=== PATIENT | female | born 1965 | race Caucasian/White ===

== ENCOUNTER 2017-02-05 21:31 | Observation (INO) | payer OTHER ==
--- NOTE | ~2017-02-05 | CR72 ---
[facility] A Service of [facility] & [facility] RADIOLOGY TEXT RESULTS PATIENT: GI QUIÑONES LOCATION: [facility] 302- : 63 UNIT #: [id number] AGE: [address]: Ankit Jaramillo MD SEX: F ORDER DR: [id number] [facility] [address] [place]. [place], [place] [address] [id number] MR#: [id number] Acc #: [id number] NAME: GI QUIÑONES. : 1965 SEX: F STUDY DATE/TIME: 02/06/2017 0:32 UNIT: [address] ROOM: [facility] STUDY DESCRIPTION: CR Chest Single View Portable Attending Physician: Ankit Jaramillo M.D. Ordering Physician: Pavithra Jane M.D. Primary Care Physician: No Primary Care Physician MEDICAL IMAGING REPORT This report is preliminary unless electronic signature is present EXAM Portable chest INDICATIONS Shortness of air tonight. PROCEDURE Frontal view chest COMPARISON None FINDINGS Heart size within normal limits. No dense consolidation. Likely chronic parenchymal coarsening. IMPRESSION 1. No active process. 2. Likely chronic parenchymal change in both lungs. Dictated by... Horacio Lockett M.D. THIS IS AN ELECTRONICALLY VERIFIED REPORT Horacio Lockett M.D. at 02/07/2017 9:54 PM MARY/daniella TD: 02/06/2017 10:15 JOB #: [id number] MEDICAL IMAGING REPORT Page 1 of 1 COPY
--- NOTE | ~2017-02-05 | HP ---
Unit #: [id number] #: [id number] Patient: GI QUIÑONES [id number] [address] [place], [place] [address] [id number] MR#: [id number] NAME: GI QUIÑONES. ROOM: 302 Age: 51 Sex: F Admission Date: 02/06/2017 : 1965 Attending Physician: Kayleigh Millard M.D. Primary Care Physician: No Primary Care Physician HISTORY AND PHYSICAL CHIEF COMPLAINT Esophageal meat impaction. HISTORY OF PRESENT ILLNESS This pleasant 51-year-old female with a history of hypertension, alcohol abuse, and what sounds to be esophageal strictures, is admitted for an esophageal meat impaction. The patient was eating meat at 7:30 p.m. last evening when she developed odynophagia lower end of the esophagus. She feels as if there is a piece of meat stuck at the lower end of the esophagus. She presented to this emergency department last evening, where she was given IM glucagon without improvement, along with nitroglycerin without improvement. She is complaining of quite a bit of pain. She has required EGD with an esophageal dilatation in the past for similar presentations. She was noted to have alcohol on her breath and her alcohol level is 154. She drinks between 18 and 24 beers on a daily basis. PAST MEDICAL HISTORY 1. Some sort of brain tumor, likely benign as the patient states that it was diagnosed five years ago. She declined further workup, but states that it did grow slowly. 2. Chronic low back pain. 3. Hypertension. 4. History of pancreatitis. 5. Alcohol abuse. 6. History of what sounds to be esophageal strictures requiring dilatations in the past. 7. Cholecystectomy. 8. BTL. 9. Tonsillectomy. 10. Multiple hernia repairs. SOCIAL HISTORY The patient is living with her son's girlfriend. She smokes about 1.5 packs per day, drinks 18-24 beers on a daily basis. FAMILY HISTORY Negative for GI disease. ALLERGIES Ibuprofen, latex and Darvocet. HOME MEDICATIONS Unit #: [id number] #: [id number] Patient: GI QUIÑONES 1. Atenolol 50 mg daily. 2. Jefferson 10. 3. Soma tablets. 4. Neurontin. REVIEW OF SYSTEMS Notable for odynophagia, esophageal strictures, brain tumor, chronic back pain, hypertension, pancreatitis, alcohol abuse, tobacco abuse, the above mentioned surgeries. All other systems were reviewed and otherwise negative. PHYSICAL EXAMINATION GENERAL: The patient is a 51-year-old female who looks to be uncomfortable. VITALS: Temperature 98.4, pulse 80, respiratory rate 18, blood pressure 172/102, O2 saturation 98% on room air. HEENT: Eyes, pupils equally round and reactive to light and accommodation. Extraocular muscles intact. Pharynx is benign. NECK: Supple without adenopathy or thyromegaly. CHEST: Clear. HEART: Normal S1 and S2 without S3, S4, murmur. ABDOMEN: Bowel sounds are present, mild epigastric tenderness. No rebound or guarding. No hepatosplenomegaly or masses. EXTREMITIES: Without edema, although the left leg looks to be a little bit bigger than the right leg. NEUROLOGIC: The patient is awake, alert and oriented. Cranial nerves are intact. There is equal strength throughout. She is non-tremulous. DIAGNOSTIC STUDIES IMAGING: Chest x-ray currently pending. LABORATORY: On admission, hematocrit 42.6, normal white count, platelet count and coags. SMA12, glucose 143, sodium 133, AST 48, alkaline phosphatase 110, alcohol 154. Coags are normal. Urine tox screen is negative. Urinalysis positive leukocyte esterase, nitrates, with 50-100 red cells, 10-25 white cells, and no bacteria. ASSESSMENT 1. Esophageal meat impaction with history of dysphagia and meat impactions in the past. 2. Alcohol abuse. 3. Possible urinary tract infection. 4. Chronic back pain. 5. Essential hypertension. PLAN 1. IV fluids. 2. Proton pump inhibitor. 3. Thiamine and benzo. 4. Change atenolol to low-dose IV Lopressor while n.p.o. 5. GI consultation. 6. SCDs for DVT prophylaxis. 7. Antibiotics pending urine LOGISTICS INTERN. Dictated by Kayleigh Millard M.D. Unit #: [id number] #: [id number] Patient: GI QUIÑONES AML/gz TD: 02/06/2017 06:16 JOB #: [id number] HISTORY AND PHYSICAL Page 1 of 1 X Kayleigh Millard MD HISTORY AND PHYSICAL
--- NOTE | ~2017-02-05 | OR ---
Unit #: [id number] #: [id number] Patient: GI QUIÑONES [id number] [place] [address] [id number] I MR#: [id number] NAME: GI QUIÑONES ROOM: [facility] Date of Procedure: 02/07/2017 Admission Date: 02/06/2017 Surgeon: Daniel Patten M.D. : 1965 Attending Physician: Ankit Jaramillo M.D. Primary Care Physician: No Primary Care Physician PROCEDURE OPERATIVE NOTE PROCEDURE PERFORMED EGD with biopsy. INDICATION FOR PROCEDURE The patient presented with acute worsening of dysphagia, possible meat impaction. He does have a history of esophageal stricture with dilations previously at other facilities. ANESTHESIA Monitored anesthesia. POSTOPERATIVE FINDINGS 1. 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 2. Hiatal hernia. 3. Mild gastritis, biopsy taken. 4. Normal duodenum. PLAN 1. PPI therapy. 2. Reflux precautions. 3. Abstinence. 4. Repeat dilation after six to eight weeks. PROCEDURE The patient was explained the risks and benefits of the procedure along with the risks and benefits of anesthesia. She was brought to the endoscopy room and local anesthesia was given. Bite block was placed. The scope was passed down the mouth and esophagus, stomach, duodenum, and distal duodenum. Findings as described. Biopsies were taken. Dilation was carried out. Gently the scope was pulled out. She tolerated the procedure well. Dictated by... Bryce Burciaga/jame Unit #: [id number] #: [id number] Patient: GI QUIÑONES TD: 02/07/2017 08:59 JOB #: [id number] CC: Daniel Patten M.D. PROCEDURE OPERATIVE NOTE Page 1 of 1 X Daniel Patten MD X PROCEDURE OPERATIVE NOTE
[2017-02-05 23:04] LABS: URINE SOURCE CLEAN CATCH
[2017-02-05 23:14] LABS: URINE APPEARANCE CLOUDY; URINE BILIRUBIN NEG (NEG); URINE BLOOD 1+ (NEG); URINE COLOR YELLOW; URINE GLUCOSE NEG (NEG); URINE KETONE NEG (NEG); URINE LEUKOCYTE ESTERASE 2+ (NEG); URINE NITRATE POS (NEG); URINE PH 5.5 (5-8); URINE PROTEIN NEG (NEG); URINE SPECIFIC GRAVITY 1.004 (1.003-1.035); URINE UROBILINOGEN 0.2 MG/DL (NEG)
[2017-02-05 23:15] LABS: CULTURE INDICATED? YES; URBCS1 AUWI 50-100 /[HPF] (0-2); URINE BACTERIA AUWI NEG (NEGATIVE); URINE SQUAMOUS EPITHELIAL CELL FEW /[HPF]
[2017-02-05 23:38] LABS: BASOPHIL# 0.1 X10e3 (0-0.3); BASOPHIL% 1.1 % (0-2.5); EOSINOPHIL# 0.1 X10e3 (0-0.7); HEMATOCRIT 42.6 % (35.0-45.0); HEMOGLOBIN 14.1 gm/dL (12.0-16.0); LYMPHOCYTE# 1.6 X10e3 (1.0-3.5); MEAN CELL VOLUME 97.2 FL (83-96); MEAN CORPUSCULAR HEMOGLOBIN 32.2 PG (28-34); MEAN CORPUSCULAR HGB CONC 33.1 g/dL (30-36); MEAN PLATELET VOLUME 7.6 FL (6.5-11.5); MONOCYTE# 0.3 X10e3 (0-1.0); MONOCYTE% 6.5 % (3.0-12.0); NEUTROPHIL# 2.4 X10e3 (1.5-7.1); NEUTROPHIL% 54.4 % (40-75); PLATELET COUNT 233 X10e3 (140-420); RED BLOOD COUNT 4.39 X10e (3.90-5.30); RED CELL DISTRIBUTION WIDTH 15.1 % (11.0-15.5); WHITE BLOOD COUNT 4.5 X10e3 (4.0-10.5)
[2017-02-05 23:39] LABS: AMPHETAMINE NEG (NEG); BARBITURATES NEG (NEG); BENZODIAZEPINES NEG (NEG); COCAINE NEG (NEG); MARIJUANA NEG (NEG); OPIATES NEG (NEG); TRICYCLIC ANTIDEPRESSANTS NEG (NEG); U METHADONE NEG (NEG)
[2017-02-05 23:39] LABS: DIFF IND NO
[2017-02-05 23:52] LABS: PARTIAL THROMBOPLASTIN TIME 26.4 SECONDS (23.5-31.3); PROTHROMBIN TIME (PATIENT) 10.4 SECONDS (9.6-11.5)
[2017-02-06 00:08] LABS: BILIRUBIN, DIRECT 0.1 mg/dL (0.0-0.2); BILIRUBIN,INDIRECT 0.3 mg/dL (0.0-0.9); BILIRUBIN,TOTAL 0.4 mg/dL (0.2-2.0); BUN/CREATININE RATIO 12.5; CALCIUM SERUM 8.4 mg/dL (8.4-10.2); CREATININE SERUM 0.4 mg/dL (0.6-1.4); GLOM FILT RATE Estimated 119.8 mL/min (>60); POTASSIUM 3.9 mmol/L (3.5-5.1); PROTEIN TOTAL SERUM 7.3 g/dL (6.0-8.3)
[2017-02-06] MEDS ORDERED: ATENOLOL50 MG PO (02:22)
[2017-02-06] MEDS ORDERED: LORTAB 10-3251 EACH PO (02:22)
[2017-02-06] MEDS ORDERED: NEURONTIN800 MG PO (02:27)
[2017-02-06 07:56] LABS: BASOPHIL# 0.2 X10e3 (0-0.3); EOSINOPHIL# 0.2 X10e3 (0-0.7); HEMATOCRIT 40.1 % (35.0-45.0); HEMOGLOBIN 13.1 gm/dL (12.0-16.0); LYMPHOCYTE% 31.5 % (17.0-45.0); MEAN CELL VOLUME 97.8 FL (83-96); MEAN CORPUSCULAR HEMOGLOBIN 31.9 PG (28-34); MEAN CORPUSCULAR HGB CONC 32.6 g/dL (30-36); MEAN PLATELET VOLUME 7.8 FL (6.5-11.5); MONOCYTE# 0.8 X10e3 (0-1.0); MONOCYTE% 12.3 % (3.0-12.0); NEUTROPHIL# 3.2 X10e3 (1.5-7.1); NEUTROPHIL% 50.2 % (40-75); PLATELET COUNT 217 X10e3 (140-420); RED BLOOD COUNT 4.11 X10e (3.90-5.30); RED CELL DISTRIBUTION WIDTH 14.8 % (11.0-15.5); WHITE BLOOD COUNT 6.3 X10e3 (4.0-10.5)
[2017-02-06 07:57] LABS: DIFF IND NO
[2017-02-06 08:32] LABS: CALCIUM SERUM 8.3 mg/dL (8.4-10.2); CREATININE SERUM 0.5 mg/dL (0.6-1.4); GLOM FILT RATE Estimated 111.3 mL/min (>60); POTASSIUM 4.2 mmol/L (3.5-5.1)
[2017-02-07] MEDS ORDERED: PROTONIX PO (15:14)
[2017-02-07] MEDS ORDERED: HYDROCODON-ACE1 EAC7 PO (15:14)
[2017-02-07] MEDS ORDERED: KEFLEX500 M1 PO (15:15)
[2017-02-07] MEDS ORDERED: DIFLUCAN PO (15:20)
== END 2017-02-07 16:19 | disposition home or self-care (01) ==
LOC: CED 21:31 → CEDOF 02-06 01:00 → C3A PCU 02-06 01:00 → CED 02-06 02:01 → CEDOF 02-06 02:01 → C3A PCU 02-06 04:02 → CEDOF 02-06 04:02 → C3A PCU 02-06 07:17
PROVIDERS: Emergency Medicine; Internal Medicine
DX: T18.128A Food in esophagus causing other injury, initial encounter (principal); K22.2 Esophageal obstruction; K22.10 Ulcer of esophagus without bleeding; F10.10 Alcohol abuse, uncomplicated; K44.9 Diaphragmatic hernia without obstruction or gangrene; K29.50 Unspecified chronic gastritis without bleeding; I10 Essential (primary) hypertension; M54.9 Dorsalgia, unspecified; G89.29 Other chronic pain; F17.200 Nicotine dependence, unspecified, uncomplicated; Z90.49 Acquired absence of other specified parts of digestive tract; Z88.6 Allergy status to analgesic agent; Z91.040 Latex allergy status
CPT/HCPCS: 36415; 71010; 80048; 80076; 80307; 81003; 85025; 85610; 85730; 87086; 88305; 88312; 96365; 96366; 96372; 96375; 96376; 99285; C9113; G0378; G0480; J0696; J1610; J2060; J2250; J2270; J3411; J3490